=== PATIENT | female | born 1995 | race Caucasian/White ===

== ENCOUNTER 2017-03-22 11:42 | Emergency (ER) | END 2017-03-22 12:09 | disposition left against medical advice (07) | LOC: UCCORT 11:42 | DX: J06.9 Acute upper respiratory infection, unspecified (principal); Z53.21 Procedure and treatment not carried out due to patient leaving prior to being seen by health care provider ==

== ENCOUNTER 2018-12-25 20:48 | Emergency (ER) | payer BC ==
[2018-12-25 21:10] VITALS: BP 150/96
--- NOTE | 2018-12-25 21:28 | UC ---
Upper Extremity HPI - HPI Summary HPI Summary: R WRIST PAIN AFTER NO HX OF INJURY OR FALL. FEELS THERE IS SOME SWELLING, NO REDNESS. CERTAIN MOVEMENTS MAKE IT WORSE, NOTHING MAKES IT FEEL BETTER. DOES NOT REMEMBER A FALL OR INJURY. HAS NOT DONE ANY MOVEMENTS THAT ARE REPETITIVE. - History of Current Complaint Chief Complaint: UCUpperExtremity Stated Complaint: RIGHT WRIST PAIN AND SWELLLING Time Seen by Provider: 12/25/18 21:17 Hx Obtained From: Patient Hx Last Menstrual Period: Dec 17 Pain Intensity: 5 Pain Scale Used: 0-10 Numeric Character: Sharp Aggravating Factor(s): Movement - certain types of movements Alleviating Factor(s): Nothing Associated Signs And Symptoms: Positive: Swelling, Redness. Negative: Weakness , Numbness/Tingling - Allergies/Home Medications Allergies/Adverse Reactions: Allergies Allergy/AdvReac Type Severity Reaction Status Date / Time No Known Allergies Allergy Verified 12/25/18 21:10 Home Medications: Home Medications Cyanocobalamin TAB* [Vitamin B12 TAB*] 1,000 mcg PO DAILY 12/25/18 [History Confirmed 12/25/18] Loratadine [Claritin] 10 mg PO DAILY 12/25/18 [History Confirmed 12/25/18] Low Estrogen 12/25/18 [History] PMH/Surg Hx/FS Hx/Imm Hx - Additional Past Medical History Additional PMH: environmental allergies. Previously Healthy: Yes - Surgical History Surgical History: None - Family History Known Family History: Positive: Non-Contributory - Social History Alcohol Use: Rare Substance Use Type: None Smoking Status (MU): Never Smoked Tobacco Review of Systems All Other Systems Reviewed And Are Negative: Yes Constitutional: Negative: Fever Skin: Negative: Rash, Bruising Musculoskeletal: Positive: Arthralgia - r WRIST PAIN, Edema Neurological: Negative: Paresthesia Physical Exam Triage Information Reviewed: Yes Appearance: Well-Appearing Vital Signs: Initial Vital Signs Temp 98.2 F 12/25/18 21:05 Pulse 86 12/25/18 21:05 Resp 14 12/25/18 21:05 BP 150/96 12/25/18 21:05 Pulse Ox 100 12/25/18 21:05 Vital Signs Reviewed: Yes Respiratory: Positive: No respiratory distress Musculoskeletal: Positive: ROM Intact - R wrist., Edema @ - very minimal at R wrist, no discoloration. Neurological: Positive: Alert, Other: - g[employer]OD [employer] AP[employer]ENTICE/STRENGTH at R hand/arm/wrist. Upper Extremity Course/Dx - Course Course Of Treatment: R wrist pain w/ unkonwn etiology but suspect a tendonitis. for now nsaids for pain. nOT thought to be as she just had period 1 wk. ago and takes bcp so we were able to get an xray which did not show obvious fx on prelim reading.vitals good. bp elevated - Differential Dx/Diagnosis Differential Diagnosis/HQI/PQRI: Fracture (Closed), Strain, Sprain Provider Diagnosis: Tendonitis Discharge ED - Sign-Out/Discharge Documenting (check all that apply): Patient Departure All imaging exams completed and their final reports reviewed: No - Discharge Plan Condition: Good Disposition: HOME Prescriptions: Ibuprofen [Ibu] 600 mg PO TID 10 Days #30 tablet Patient Education Materials: Tendinitis (ED) Referrals: Kia Logan MD [Primary Care Provider] - Additional Instructions: If worsening please visit with your pcp. - Billing Disposition and Condition Condition: GOOD Disposition: Home
== END 2018-12-25 21:53 | disposition home or self-care (01) ==
LOC: UCCORT 20:48
DX: M77.9 Enthesopathy, unspecified (principal)
CPT/HCPCS: 99212; G0463